=== PATIENT | female | born 1945 | race Caucasian/White ===

== ENCOUNTER 2020-10-28 11:51 | Emergency (ER) | payer MEDICARE ==
[~2020-10-28] VITALS: Ht 154.9 cm; Wt 49.9 kg
[2020-10-28 12:02] VITALS: BP 135/66
[2020-10-28] MEDS ORDERED: SERTRALINE HCL100 MG PO (12:05)
[2020-10-28] MEDS ORDERED: AMLODIPINE BESY10 MG PO (12:05)
== END 2020-10-28 13:08 | disposition home or self-care (01) ==
LOC: M.ERS 11:51
DX: S93.492A Sprain of other ligament of left ankle, initial encounter (principal); K58.9 Irritable bowel syndrome, unspecified; Z90.710 Acquired absence of both cervix and uterus; Z90.49 Acquired absence of other specified parts of digestive tract; Z88.5 Allergy status to narcotic agent; Z88.2 Allergy status to sulfonamides; W07.XXXA Fall from chair, initial encounter; Y93.89 Activity, other specified; Y92.89 Other specified places as the place of occurrence of the external cause; Y99.8 Other external cause status